=== PATIENT | male | born 1965 | race Caucasian/White ===

== ENCOUNTER → 2016-07-12 | Outpatient (CLI) | payer OTHER ==
--- NOTE | 2016-07-12 11:36 | MR ---
MRI CERVICAL SPINE: MRI THORACIC SPINE: MRI LUMBAR SPINE: CLINICAL HISTORY: Cervical, thoracic, and lumbar region radiculopathy all per order. Radiculopathy, t horacic spine radiculopathy, headaches with neck and back pain since falling injury March 2015 ca using pain into shoulders hands as well as left arm. Low back pain for a long time per patient. TECHNIQUE: Multiplanar, multisequence imaging of the cervical, thoracic, and lumbar spine are all per formed without IV contrast. COMPARISON: None. FINDINGS: C-SPINE: Sagittal images of the cervical spine show the craniocervical junction to appear within normal limits . The cervical and upper thoracic spinal cord is normal in caliber and signal. Vertebral alignment is straightened on sagittal images. The vertebral body heights are normal. There is mild to moderate disc space narrowing at C5-C6 and moderate disc space narrowing at C6-C7 level. Posterior disc herni ations are present at these levels on sagittal images. Mild to moderate anterior spurring is present at these levels. There is some heterogeneous increased T1 and T2 signal consistent with Modic type II degenerative change at C6-C7 level. Axial images show the C2-C3 level to appear within normal limits limits. Axial images at the C3-C4 level show mild broad based disc protrusion minimally effacing anterior the florence sac and causing mild bilateral neural foraminal narrowing. Axial images at C4-C5 level are felt within normal limits. Axial images at the C5-C6 level show right paracentral disc protrusion effacing anterior thecal sac n early up to ventral surface of spinal cord on axial image 22. There are uncovertebral facet degenerat kay changes causing moderate to advanced bilateral neural foraminal narrowing on axial image 24. Axial images at C6-C7 level show broad-based right paracentral/foraminal disc protrusion effacing ant erior thecal sac nearly up to ventral surface of spinal cord and causing moderate to advanced right g reater than left neural foraminal narrowing. Axial images at C7-T1 level show left-sided uncovertebral facet degenerative changes causing moderate to severe left-sided neural foraminal narrowing. Right-sided neural foramen is patent. Spinal canal is fairly well preserved. IMPRESSION: Straightening of cervical spine with multilevel degenerative changes most prominent at C5 -C6 and C6-C7 level with further details as noted in the body of report. T-SPINE: FINDINGS: A Vitamin E marker is placed posteriorly for counting purposes and is at level of the super ior T11 vertebra. Spinal cord shows normal course, caliber, and signal as it courses the thoracic sp ine. Vertebral body heights and alignment are satisfactory. Disc space heights are maintained. Poste rior disc herniations are seen effacing anterior thecal sac at T6-T7 through T10-T11 level on sagitta l images. Additional posterior disc herniation seen at T12-L1 level effacing anterior thecal sac on s agittal images. Bone marrow signal intensity is preserved. There is minimal multilevel anterior spurr ing. Review of the axial images shows no additional disc herniation at any other level in the upper to mid thoracic spine. Left paracentral disc herniation effacing anterolateral thecal sac at T6-T7 levels confirmed on axial image 2. Right paracentral disc herniation effacing anterolateral thecal sac is confirmed on axial image 16 at T7-T8 level. Axial images at T8-T9 level confirm central disc herniation effacing anterior thecal sac on axial dre ge 13. Axial images at T9-T10 level show broad-based slight right paracentral disc protrusion effacing anter ior thecal sac up to ventral surface of spinal cord on axial image 11. Axial images at T10-T11 level show right paracentral/foraminal disc protrusion effacing anterolateral thecal sac on axial image 9. Mild right-sided neural foraminal narrowing is present. Axial images at the T11-T12 level show broad-based right paracentral disc protrusion effacing anterol ateral thecal sac on axial image 4. Axial images at the T12-L1 level show broad-based right paracentral disc protrusion effacing anterola teral thecal sac and axial image 2. IMPRESSION: Multilevel degenerative changes or disc herniations in the mid to lower thoracic spine as detailed above. L-SPINE: FINDINGS: Sagittal images of the lumbar spine show vertebral body heights and alignment to appear sat isfactory. There is disc desiccation L4-L5 level otherwise the intervertebral discs demonstrate stevo l heights and hydration. Small posterior disc herniation seen L4-L5 level on sagittal images. The con us medullaris is normal in position and signal ending at T12-L1 disc space level. The bone marrow si gnal intensity shows some mild heterogeneous endplate changes anterior superior endplates with mild a nterior spurring. Axial images show mild facet degenerative changes bilaterally at L1-L2 through L3-L4 levels. Spinal c anal is preserved and bilateral neural foramina remain patent. Axial images at L4-L5 level show mild facet degenerative changes bilaterally. There is mild to modera te broad disc bulge seen. There is minimal effacement anterior thecal sac. There is moderate left and mild to moderate right-sided neural foraminal narrowing at this level identified. Axial images at L5-S1 level show mild facet degenerative changes bilaterally otherwise are felt withi n normal limits. IMPRESSION: Some multilevel degenerative changes in the lumbar spine as detailed above with findings most pronounced at L4-L5 level noted.
== END | disposition home or self-care (01) ==
LOC: RADMRIMAIN 09:50
PROVIDERS: ATTEND Physical Medicine & Rehabilitation
DX: M48.02 Spinal stenosis, cervical region (principal); M99.71 Connective tissue and disc stenosis of intervertebral foramina of cervical region; M99.72 Connective tissue and disc stenosis of intervertebral foramina of thoracic region; M51.14 Intervertebral disc disorders with radiculopathy, thoracic region; M51.15 Intervertebral disc disorders with radiculopathy, thoracolumbar region; M50.123 Cervical disc disorder at C6-C7 level with radiculopathy; M47.22 Other spondylosis with radiculopathy, cervical region; M47.26 Other spondylosis with radiculopathy, lumbar region
CPT/HCPCS: 72141; 72146; 72148

== ENCOUNTER 2016-10-01 19:41 | Emergency (ER) | payer OTHER ==
[2016-10-01 19:55] VITALS: RESP 18
--- NOTE | 2016-10-01 20:46 | ED ---
General Adult HPI - General Chief complaint: Psychiatric Symptoms Stated complaint: Mental Health-Shaky/SOB Time Seen by Provider: 10/01/16 20:20 Source: patient, family, RN notes reviewed Mode of arrival: ambulatory Limitations: no limitations - History of Present Illness Initial comments: Patient's a 51-year-old male who presents emergency room today with multiple complaints. He does admit that his had increased anxiety. He does admit that he's had increased shaking. States been following up with both his psychiatrist and family doctor for the symptoms. States he is scheduled to see a neurologist but is 2 months weight. States he feels like he cannot wait for this appointment. He states that the shaking seems to be getting worse. States having anxiety due to it. States that his anxiety does have shortness of breath. States currently not feeling short of breath at this time. She still having shakiness in his hands at this time. He currently denies any other complaints or symptoms. Denies any changes in medications. States been taking all of his prescribed meds. Patient denies any recent fever, chills, chest pain, back pain, abdominal pain, nausea or vomiting, numbness or tingling , dysuria or hematuria, constipation or diarrhea, headaches or visual changes, or any other complaints. - Related Data Home Medications Medication Instructions Recorded Confirmed Baclofen 10 mg PO BID 11/06/15 10/01/16 Cholecalciferol [Vitamin D3] 1,000 unit PO DAILY 11/06/15 10/01/16 Escitalopram [Lexapro] 10 mg PO DAILY 11/06/15 10/01/16 Gabapentin [Neurontin] 150 mg PO BID 11/06/15 10/01/16 Gabapentin [Neurontin] 300 mg PO BID 11/06/15 10/01/16 Omeprazole 20 mg PO DAILY 11/06/15 10/01/16 Sodium Bicarbonate 325 mg PO DAILY 11/06/15 10/01/16 buPROPion HCL [Bupropion HCl Sr] 150 mg PO BID 11/06/15 10/01/16 oxyCODONE HCL 15 mg PO TID 11/06/15 10/01/16 Previous Rx's Medication Instructions Recorded Allopurinol [Zyloprim] 150 mg PO DAILY #1 tab 11/10/15 Bumetanide 0.5 mg PO Q48H #0 11/10/15 Folic Acid 1 mg PO DAILY@1200 #30 tab 11/10/15 Multivitamins, Thera [Multivitamin 1 each PO DAILY@1200 #30 tab 11/10/15 (formulary)] Thiamine [Vitamin B-1] 100 mg PO DAILY #30 tab 11/10/15 cloNIDine HCL [Catapres] 0.1 mg PO TID #90 tab 11/10/15 hydrALAZINE HCL [Apresoline] 50 mg PO TID #90 tab 11/10/15 Allergies Allergy/AdvReac Type Severity Reaction Status Date / Time guaifenesin [From Robitussin] Allergy Anaphylaxis Verified 10/01/16 19:55 mesalamine [From Delzicol] Allergy Rash/Hives Verified 10/01/16 19:56 Review of Systems ROS Statement: Those systems with pertinent positive or pertinent negative responses have been documented in the HPI. ROS Other: All systems not noted in ROS Statement are negative. Past Medical History Past Medical History: GERD/Reflux, Hyperlipidemia, Hypertension Additional Past Medical History / Comment(s): Pt requests global technical writer to contact either his mother, Tanja Hartman or sister Eneida for his PMH stating he feels alittle too confused to participate in obtaining history. Wet Machine Operator contacted mother who directed that sister Eneida be contacted. Wet Machine Operator contacted Eneida and she assisted with PMH. Approximately 2 months ago pt had been having abdominal pain and then bowel rupture with surgery-done at [facility]. He was in a induced coma post op and developed kidney issues and received dialysis for a time. He was in the hospital for about 1 month. Sister states he discharged sometime in August and family has noticed a change in his behavior. She states he has had more childish behavior and has had a few rages which she states is completely not like him. He was living with his girlfriend but the broke up 1 week ago and now he is basically homeless - his sister tries to get him to stay with her as much as possible. Family has notice an increase in weakness and confusion the past 2 days. 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 History of Any Multi-Drug Resistant Organisms: None Reported Past Surgical History: Bowel Resection Additional Past Surgical History / Comment(s): Bowel resection with colostomy Past Anesthesia/Blood Transfusion Reactions: No Reported Reaction Past Psychological History: Anxiety, Depression Additional Psychological History / Comment(s): Per pt's sister, Eneida-pt has not been himself since discharged from [facility] in August 2015-more childish behavior and has had a few rages. He is usually independent with his ADLs and he drives. He uses no assistive device. Pt's sister states pt lived with his girlfriend up until 1 week ago. He is now basically homeless. His sister tries to have him stay with her as much as possible. Smoking Status: Former smoker Past Alcohol Use History: Heavy Additional Past Alcohol Use History / Comment(s): Pt smoked for a few yrs and quit when he was 21 yrs old. He used to drink heavily but has not had any alcohol since his bowel surgery earlier this year. Past Drug Use History: None Reported - Past Family History Mother Family Medical History: No Reported History Additional Family Medical History / Comment(s): Mother is very healthy and is 81 yrs old. Father Family Medical History: Hypertension Additional Family Medical History / Comment(s): Father has severe back problems , DDD. He at age 84 yrs. General Exam - General Exam Comments Initial Comments: General: The patient is awake and alert, in no distress, and does not appear acutely ill. Eye: Pupils are equal, round and reactive to light, extra-ocular movements are intact. No nystagmus. There is normal conjunctiva bilaterally. No signs of icterus. Ears, nose, mouth and throat: There are moist mucous membranes and no oral lesions. Neck: The neck is supple, there is no tenderness or JVD. Cardiovascular: There is a regular rate and rhythm. No murmur, rub or gallop is appreciated. Respiratory: Lungs are clear to auscultation, respirations are non-labored, breath sounds are equal. No wheezes, stridor, rales, or rhonchi. Musculoskeletal: Normal ROM, no tenderness. Strength 5/5. Sensation intact. Pulses equal bilaterally 2+. Neurological: A&O x 3. CN II-XII intact, There are no obvious motor or sensory deficits. Coordination appears grossly intact. Speech is normal. Skin: Skin is warm and dry and no rashes or lesions are noted. Psychiatric: Cooperative. Anxious. Limitations: no limitations Course Vital Signs 04/01/17 04/01/17 19:53 22:20 Temperature 97.9 F 97.3 F L Pulse Rate 82 65 Respiratory 18 18 Rate Blood Pressure 126/85 138/86 O2 Sat by Pulse 99 96 Oximetry EKG Findings - EKG Comments: EKG Findings:: EKG performed at 2121: A 12-lead EKG was performed and interpreted by me as showing the following: Rate is 75, and rhythm is normal sinus. There are normal QRS complexes and normal R-wave progression. ST segments have no elevation or depression, and AK segments appear normal. Medical Decision Making - Medical Decision Making Patient reexamined at this time shows no signs of distress. His labs been reviewed and are unremarkable. Patient's seen by mental health. He has no suicidal thoughts or plans or homicidal thoughts or plans. They recommend that he could follow-up outpatient. Patient is advised follow-up neurologist for his shaking. Advised return to emergency room if any symptoms increase worsen or for any other concerns. - Lab Data Result diagrams: 10/01/16 21:20 10/01/16 21:20 Lab Results 10/01/16 10/01/16 10/01/16 Range/Units 21:20 21:20 21:20 WBC 7.4 (3.8-10.6) k/uL RBC 4.85 (4.30-5.90) m/uL Hgb 13.7 (13.0-17.5) gm/dL Hct 40.8 (39.0-53.0) % MCV 84.1 (80.0-100.0) fL MCH 28.3 (25.0-35.0) pg MCHC 33.6 (31.0-37.0) g/dL RDW 13.9 (11.5-15.5) % Plt Count 369 (150-450) k/uL Neutrophils % 61 % Lymphocytes % 28 % Monocytes % 6 % Eosinophils % 2 % Basophils % 1 % Neutrophils # 4.5 (1.3-7.7) k/uL Lymphocytes # 2.1 (1.0-4.8) k/uL Monocytes # 0.4 (0-1.0) k/uL Eosinophils # 0.2 (0-0.7) k/uL Basophils # 0.1 (0-0.2) k/uL Sodium 141 (137-145) mmol/L Potassium 4.7 (3.5-5.1) mmol/L Chloride 105 (98-107) mmol/L Carbon Dioxide 23 (22-30) mmol/L Anion Gap 13 mmol/L BUN 20 (9-20) mg/dL Creatinine 1.38 H (0.66-1.25) mg/dL Est GFR (MDRD) Af Amer >60 (>60 ml/min/1.73 sqM) Est GFR (MDRD) Non-Af 55 (>60 ml/min/1.73 sqM) Glucose 88 (74-99) mg/dL Calcium 9.9 (8.4-10.2) mg/dL Total Bilirubin 0.5 (0.2-1.3) mg/dL AST 25 (17-59) U/L ALT 36 (21-72) U/L Alkaline Phosphatase 78 (38-126) U/L Troponin I <0.012 (0.000-0.034) ng/mL Total Protein 7.6 (6.3-8.2) g/dL Albumin 4.6 (3.5-5.0) g/dL Urine Opiates Screen (NotDetected) Ur Oxycodone Screen (NotDetected) Urine Methadone Screen (NotDetected) Ur Propoxyphene Screen (NotDetected) Ur Barbiturates Screen (NotDetected) U Tricyclic Antidepress (NotDetected) Ur Phencyclidine Scrn (NotDetected) Ur Amphetamines Screen (NotDetected) U Methamphetamines Scrn (NotDetected) U Benzodiazepines Scrn (NotDetected) Urine Cocaine Screen (NotDetected) U Marijuana (THC) Screen (NotDetected) 10/01/16 Range/Units 22:15 WBC (3.8-10.6) k/uL RBC (4.30-5.90) m/uL Hgb (13.0-17.5) gm/dL Hct (39.0-53.0) % MCV (80.0-100.0) fL MCH (25.0-35.0) pg MCHC (31.0-37.0) g/dL RDW (11.5-15.5) % Plt Count (150-450) k/uL Neutrophils % % Lymphocytes % % Monocytes % % Eosinophils % % Basophils % % Neutrophils # (1.3-7.7) k/uL Lymphocytes # (1.0-4.8) k/uL Monocytes # (0-1.0) k/uL Eosinophils # (0-0.7) k/uL Basophils # (0-0.2) k/uL Sodium (137-145) mmol/L Potassium (3.5-5.1) mmol/L Chloride (98-107) mmol/L Carbon Dioxide (22-30) mmol/L Anion Gap mmol/L BUN (9-20) mg/dL Creatinine (0.66-1.25) mg/dL Est GFR (MDRD) Af Amer (>60 ml/min/1.73 sqM) Est GFR (MDRD) Non-Af (>60 ml/min/1.73 sqM) Glucose (74-99) mg/dL Calcium (8.4-10.2) mg/dL Total Bilirubin (0.2-1.3) mg/dL AST (17-59) U/L ALT (21-72) U/L Alkaline Phosphatase (38-126) U/L Troponin I (0.000-0.034) ng/mL Total Protein (6.3-8.2) g/dL Albumin (3.5-5.0) g/dL Urine Opiates Screen Detected H (NotDetected) Ur Oxycodone Screen Not Detected (NotDetected) Urine Methadone Screen Not Detected (NotDetected) Ur Propoxyphene Screen Not Detected (NotDetected) Ur Barbiturates Screen Not Detected (NotDetected) U Tricyclic Antidepress Not Detected (NotDetected) Ur Phencyclidine Scrn Not Detected (NotDetected) Ur Amphetamines Screen Not Detected (NotDetected) U Methamphetamines Scrn Not Detected (NotDetected) U Benzodiazepines Scrn Detected H (NotDetected) Urine Cocaine Screen Not Detected (NotDetected) U Marijuana (THC) Screen Detected H (NotDetected) Disposition Clinical Impression: Shaking Disposition: HOME SELF-CARE Condition: Good Instructions: Tremors (ED) Additional Instructions: Please follow-up family doctor and discuss MRI and see neurologist as discussed. Please return to emergency room if any symptoms increase or worsen or for any other concerns. Time of Disposition: 23:01
[2016-10-01 21:45] LABS: Basophils # (A) 0.1 k/uL (0-0.2); Basophils % (A) 1 %; CH 28.6; CHCM 34.1; Eosinophils # (A) 0.2 k/uL (0-0.7); Eosinophils % (A) 2 %; HCT 40.8 % (39.0-53.0); HDW 3.33; HGB 13.7 gm/dL (13.0-17.5); Luc # (Auto) 0.22; Luc % (Auto) 3; Lymphocytes # (A) 2.1 k/uL (1.0-4.8); Lymphocytes % (A) 28 %; MCH 28.3 pg (25.0-35.0); MCHC 33.6 g/dL (31.0-37.0); MCV 84.1 fL (80.0-100.0); Mean Platelet Volume 6.5; Monocytes # (A) 0.4 k/uL (0-1.0); Monocytes % (A) 6 %; Neutrophils # (A) 4.5 k/uL (1.3-7.7); Neutrophils % (A) 61 %; RBC 4.85 m/uL (4.30-5.90); RDW 13.9 % (11.5-15.5); WBC 7.4 k/uL (3.8-10.6); WBC (Perox) 7.43
[2016-10-01 21:51] LABS: ALT 36 U/L (21-72); AST 25 U/L (17-59); Alkaline Phosphatase 78 U/L (38-126); Anion Gap 13 mmol/L; Blood Urea Nitrogen 20 mg/dL (9-20); Calcium 9.9 mg/dL (8.4-10.2); Carbon Dioxide 23 mmol/L (22-30); Chloride 105 mmol/L (98-107); Glucose 88 mg/dL (74-99); Non-African American GFR(MDRD) 55 (>60 ml/min/1.73 sqM); Potassium 4.7 mmol/L (3.5-5.1); Sodium 141 mmol/L (137-145); Total Bilirubin 0.5 mg/dL (0.2-1.3); Total Protein 7.6 g/dL (6.3-8.2)
--- NOTE | 2016-10-01 21:57 | XR ---
EXAMINATION TYPE: XR chest 2V DATE OF EXAM: 10/01/2016 9:37 PM COMPARISON: 11/09/2015 HISTORY: Weakness and shortness of breath TECHNIQUE: Frontal and lateral views of the chest are obtained. FINDINGS: There is no focal air space opacity, pleural effusion, or pneumothorax seen. The cardiac silhouette size is within normal limits. The osseous structures are intact. Dual lead right jugular central venous catheter has been removed in the interim. Previously noted pulmonary vascular congest ion has also resolved in the interim. IMPRESSION: No acute cardiopulmonary process. Resolution of the previously seen pulmonary vascular c ongestion and removal of the central venous catheter.
[2016-10-01 22:20] VITALS: BP 138/86; PULSE 65; TEMP 97.3
== END 2016-10-01 23:24 | disposition home or self-care (01) ==
LOC: EC 19:41
DX: R25.9 Unspecified abnormal involuntary movements (principal); I10 Essential (primary) hypertension; K21.9 Gastro-esophageal reflux disease without esophagitis; F32.9 Major depressive disorder, single episode, unspecified; F41.9 Anxiety disorder, unspecified; M54.9 Dorsalgia, unspecified; G62.9 Polyneuropathy, unspecified; G89.29 Other chronic pain; M54.2 Cervicalgia; Z59.0 Homelessness; Z79.899 Other long term (current) drug therapy; Z79.891 Long term (current) use of opiate analgesic; Z88.8 Allergy status to other drugs, medicaments and biological substances; Z87.891 Personal history of nicotine dependence
CPT/HCPCS: 36415; 71020; 80053; 80306; 84484; 85025; 93005; 99285

== ENCOUNTER → 2016-10-26 | Outpatient (CLI) | payer OTHER ==
--- NOTE | 2016-10-26 07:31 | MR ---
EXAMINATION TYPE: MR brain wo con DATE OF EXAM: 10/26/2016 7:16 AM COMPARISON: NONE HISTORY: Tremors TECHNIQUE: Multiplanar, multisequence imaging of the brain and brainstem is performed without IV cont rast. FINDINGS: Diffusion weighted images demonstrate no evidence of a recent infarct or other diffusion abnormality. There is no worrisome extra-axial fluid collection. The ventricular system and cisternal spaces are normal in size and appearance. The brain volume is age appropriate. There are some scattered foci of T2 hyperintensity seen throughout the white matter bilaterally. I see less than 6 small lesions tia uring 3 mm or smaller in size. Lesions are nonspecific in appearance and distribution but most likely on basis of product of chronic small vessel ischemic change in patient of this age. Midline structures demonstrate normal morphology. The craniocervical junction appears within normal limits. Normal vascular flow voids are present. The visualized sinuses are clear and the globes are i ntact. IMPRESSION: Mild nonspecific white matter changes most likely on basis of product of chronic small ve ssel ischemic change in patient of this age. Otherwise unremarkable study.
== END ==
LOC: RADMRIMAIN 06:39
PROVIDERS: ATTEND Psychiatry & Neurology Neurology
DX: R25.1 Tremor, unspecified (principal)
CPT/HCPCS: 70551

== ENCOUNTER 2016-12-07 18:23 | Emergency (ER) | payer OTHER ==
--- NOTE | 2016-12-07 20:40 | ED ---
General Adult HPI - General Chief complaint: Recheck/Abnormal Lab/Rx Stated complaint: tremors Time Seen by Provider: 12/07/16 19:53 Source: patient, family, RN notes reviewed, old records reviewed Mode of arrival: ambulatory Limitations: no limitations - History of Present Illness Initial comments: Chief complaint and history of present illness this is a 59-year-old male here with his mother. The patient has had multiple problems in the past or recently in 2014 he had ruptured diverticulitis. Was in a coma for 1 month in [facility]. After being discharged. Starting having a fine tremor to his hands now he has bilateral hands and right leg tremor. He is being seen by neurologist. Yesterday he saw the neurologist was placed on Sinemet he's only taken 2 pills. He also had lab work done which showed normal TSH and FT4. The patient had been on medications for psychological problems for the past 7 years at least including Prozac . he does see a psychiatrist and a neurologist. Anxiety increases the tremors. - Related Data Home Medications Medication Instructions Recorded Confirmed Baclofen 10 mg PO BID 11/06/15 10/01/16 Cholecalciferol [Vitamin D3] 1,000 unit PO DAILY 11/06/15 10/01/16 Escitalopram [Lexapro] 10 mg PO DAILY 11/06/15 10/01/16 Gabapentin [Neurontin] 150 mg PO BID 11/06/15 10/01/16 Gabapentin [Neurontin] 300 mg PO BID 11/06/15 10/01/16 Omeprazole 20 mg PO DAILY 11/06/15 10/01/16 Sodium Bicarbonate 325 mg PO DAILY 11/06/15 10/01/16 buPROPion HCL [Bupropion HCl Sr] 150 mg PO BID 11/06/15 10/01/16 oxyCODONE HCL 15 mg PO TID 11/06/15 10/01/16 Previous Rx's Medication Instructions Recorded Allopurinol [Zyloprim] 150 mg PO DAILY #1 tab 11/10/15 Bumetanide 0.5 mg PO Q48H #0 11/10/15 Folic Acid 1 mg PO DAILY@1200 #30 tab 11/10/15 Multivitamins, Thera [Multivitamin 1 each PO DAILY@1200 #30 tab 11/10/15 (formulary)] Thiamine [Vitamin B-1] 100 mg PO DAILY #30 tab 11/10/15 cloNIDine HCL [Catapres] 0.1 mg PO TID #90 tab 11/10/15 hydrALAZINE HCL [Apresoline] 50 mg PO TID #90 tab 11/10/15 Allergies Allergy/AdvReac Type Severity Reaction Status Date / Time guaifenesin [From Robitussin] Allergy Anaphylaxis Verified 10/01/16 19:55 mesalamine [From Delzicol] Allergy Rash/Hives Verified 10/01/16 19:56 Review of Systems ROS Statement: Those systems with pertinent positive or pertinent negative responses have been documented in the HPI. review of systems no complaint of headache or chest pain or shortness of breath this time he reports he becomes anxious his hands right leg tremble. He states is been getting worse over the past several months. No new injuries. He has had 2 divorces and was homeless 2 months ago. Her living with his sister. Past medical problems significant for GERD, hyperlipidemia, hypertension, also anxiety and depression. Surgeries include bowel resection for a ruptured diverticulitis 2 years ago. patient used to be a heavy alcohol consumer and former smoker. Family history noncontributory. ALLERGIES to guaifenesin and mesalamine ROS Other: All systems not noted in ROS Statement are negative. Past Medical History Past Medical History: GERD/Reflux, Hyperlipidemia, Hypertension Additional Past Medical History / Comment(s): Pt requests health underwriter to contact either his mother, Tanja Hartman or sister Eneida for his PMH stating he feels alittle too confused to participate in obtaining history. Second Watch Sergeant contacted mother who directed that sister Eneida be contacted. Second Watch Sergeant contacted Eneida and she assisted with PMH. Approximately 2 months ago pt had been having abdominal pain and then bowel rupture with surgery-done at [facility]. He was in a induced coma post op and developed kidney issues and received dialysis for a time. He was in the hospital for about 1 month. Sister states he discharged sometime in August and family has noticed a change in his behavior. She states he has had more childish behavior and has had a few rages which she states is completely not like him. He was living with his girlfriend but the broke up 1 week ago and now he is basically homeless - his sister tries to get him to stay with her as much as possible. Family has notice an increase in weakness and confusion the past 2 days. 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 History of Any Multi-Drug Resistant Organisms: None Reported Past Surgical History: Bowel Resection Additional Past Surgical History / Comment(s): Bowel resection with colostomy Past Anesthesia/Blood Transfusion Reactions: No Reported Reaction Past Psychological History: Anxiety, Depression Additional Psychological History / Comment(s): Per pt's sister, Eneida-pt has not been himself since discharged from [facility] in August 2015-more childish behavior and has had a few rages. He is usually independent with his ADLs and he drives. He uses no assistive device. Pt's sister states pt lived with his girlfriend up until 1 week ago. He is now basically homeless. His sister tries to have him stay with her as much as possible. Smoking Status: Former smoker Past Alcohol Use History: Heavy Additional Past Alcohol Use History / Comment(s): Pt smoked for a few yrs and quit when he was 21 yrs old. He used to drink heavily but has not had any alcohol since his bowel surgery earlier this year. Past Drug Use History: None Reported - Past Family History Mother Family Medical History: No Reported History Additional Family Medical History / Comment(s): Mother is very healthy and is 81 yrs old. Father Family Medical History: Hypertension Additional Family Medical History / Comment(s): Father has severe back problems , DDD. He at age 84 yrs. General Exam - General Exam Comments Initial Comments: General: The patient is awake and alert, is here with his mother who drove him here. Due to his condition she's not allowing him to drive. The patient is anxious he does have tremors which alternately stop and start again. Increased by anxiety. Being treated with Sinemet strongly the past 24 hours. Vital signs shows temperature 98.6 pulse 79 respiratory rate 20 pulse ox 97% room air blood pressure 101/71 Eye: Pupils are equal, round and reactive to light, extra-ocular movements are intact ; there is normal conjunctiva bilaterally. No signs of icterus. Ears, nose, mouth and throat: There are moist mucous membranes . Neck: The neck is supple, there is no tenderness . Cardiovascular: There is a regular rate and rhythm. No murmur, rub or gallop is appreciated. Respiratory: Lungs are clear to auscultation, respirations are non-labored, breath sounds are equal. No wheezes, stridor, rales, or rhonchi. Gastrointestinal: Soft, non-distended, non-tender abdomen without masses or organomegaly noted. There is no rebound or guarding present. No CVA tenderness. Back: There is no tenderness to palpation in the midline. There is no obvious deformity. No rashes noted. Musculoskeletal: patient has tremors to both upper extremities especially his hands and his right leg. They start and stop intermittently. He states if he changes position. the tremors will stop for a short while but he can't will them to stop. He has no control over them. Neurological: patient is able to walk. Tremors as noted above. Skin: Skin is warm and dry and no rashes or lesions are noted. Psychiatric: history of anxiety and depression. does not express feelings of suicide Limitations: no limitations Course Vital Signs 12/07/16 18:47 Temperature 98.6 F Pulse Rate 73 Respiratory 20 Rate Blood Pressure 101/71 O2 Sat by Pulse 97 Oximetry Medical Decision Making - Medical Decision Making vital decision making. The patient's TSH is 1.9F T4 is 1.06. I shared these numbers with the patient and his mother. He'll be following up with their family physician, kidney specialist and neurologist. As well as psychiatrist. Advised to continue with the Sinemet 3 times daily as directed by his neurologist was only started yesterday. Mother will drive patient was told not to drive is on [address] tremors or difficulties. Disposition Clinical Impression: Coarse tremors Disposition: HOME SELF-CARE Condition: Fair Instructions: Tremors (ED) Additional Instructions: Continue with the Sinemet 3 times daily. No driving until you problems have been solved and allowed to drive by your neurologist. Referrals: Justina Gregory MD [Primary Care Provider] - 1-2 days Time of Disposition: 20:45
[2016-12-07 21:04] VITALS: BP 129/83; PULSE 64; RESP 18; TEMP 98.1
== END 2016-12-07 21:04 | disposition home or self-care (01) ==
LOC: EC 18:23
DX: G25.2 Other specified forms of tremor (principal); F41.9 Anxiety disorder, unspecified; K21.9 Gastro-esophageal reflux disease without esophagitis; E78.5 Hyperlipidemia, unspecified; I10 Essential (primary) hypertension; F32.9 Major depressive disorder, single episode, unspecified; Z87.891 Personal history of nicotine dependence; Z79.891 Long term (current) use of opiate analgesic; Z79.899 Other long term (current) drug therapy; Z88.8 Allergy status to other drugs, medicaments and biological substances
CPT/HCPCS: 99284

== ENCOUNTER → 2016-12-07 | Outpatient (CLI) | payer OTHER | END | disposition home or self-care (01) | LOC: LABWHC1 10:37 | PROVIDERS: ATTEND Psychiatry & Neurology Neurology | DX: R25.1 Tremor, unspecified (principal) | CPT/HCPCS: 36415; 84439; 84443 ==

== ENCOUNTER → 2018-07-12 | Outpatient (CLI) | payer SELFPAY ==
[2018-07-12 15:14] LABS: Basophils % (A) 0 %; Eosinophils # (A) 0.2 k/uL (0-0.7); Eosinophils % (A) 2 %; HCT 40.5 % (39.0-53.0); HGB 13.1 gm/dL (13.0-17.5); Lymphocytes # (A) 2.1 k/uL (1.0-4.8); Lymphocytes % (A) 24 %; MCH 27.9 pg (25.0-35.0); MCHC 32.2 g/dL (31.0-37.0); MCV 86.6 fL (80.0-100.0); Monocytes # (A) 0.4 k/uL (0-1.0); Monocytes % (A) 5 %; Neutrophils # (A) 5.8 k/uL (1.3-7.7); Neutrophils % (A) 67 %; Platelet Count 326 k/uL (150-450); RBC 4.68 m/uL (4.30-5.90); RDW 14.7 % (11.5-15.5); WBC 8.6 k/uL (3.8-10.6)
[2018-07-12 18:32] LABS: Albumin 4.2 g/dL (3.80-4.90); Albumin/Globulin Ratio 2.47 (1.20-2.10); Anion Gap 8.4 mmol/L (4.00-12.00); Calcium 9.2 mg/dL (8.7-10.3); Carbon Dioxide 26.6 mmol/L (21.6-31.8); Globulin 1.7 g/dL (1.6-3.3); Potassium 4.1 mmol/L (3.5-5.5); Total Bilirubin 0.5 mg/dL (0.2-1.2); Total Protein 5.9 g/dL (6.2-8.2)
== END | disposition home or self-care (01) ==
LOC: LABWHC1 14:29
PROVIDERS: ATTEND Internal Medicine Nephrology
DX: E87.2 Acidosis (principal); E79.9 Disorder of purine and pyrimidine metabolism, unspecified; N25.81 Secondary hyperparathyroidism of renal origin; N18.2 Chronic kidney disease, stage 2 (mild); E55.9 Vitamin D deficiency, unspecified
CPT/HCPCS: 36415; 80053; 82043; 82306; 82570; 84550; 85025

== ENCOUNTER → 2018-11-12 | Outpatient (CLI) | payer MEDICARE ==
[2018-11-12 17:57] LABS: Basophils # (A) 0.1 k/uL (0-0.2); Basophils % (A) 1 %; Eosinophils # (A) 0.2 k/uL (0-0.7); Eosinophils % (A) 2 %; HCT 39.2 % (39.0-53.0); HGB 13.2 gm/dL (13.0-17.5); Lymphocytes % (A) 25 %; MCH 28.9 pg (25.0-35.0); MCHC 33.5 g/dL (31.0-37.0); MCV 86.3 fL (80.0-100.0); Mean Platelet Volume 6.7; Monocytes # (A) 0.5 k/uL (0-1.0); Monocytes % (A) 6 %; Neutrophils # (A) 5.3 k/uL (1.3-7.7); Neutrophils % (A) 65 %; Platelet Count 260 k/uL (150-450); RBC 4.55 m/uL (4.30-5.90); WBC 8.1 k/uL (3.8-10.6)
[2018-11-12 23:35] LABS: Vitamin D 25 Hydroxy 19.4 ng/mL (30.0-100.0)
[2018-11-13 00:21] LABS: Parathyroid Hormone Intact 109.9 pg/mL (14.0-72.0)
[2018-11-13 01:22] LABS: Albumin 4.2 g/dL (3.80-4.90); Albumin/Globulin Ratio 2.47 (1.60-3.17); Anion Gap 11.4 mmol/L (4.00-12.00); Calcium 9.1 mg/dL (8.7-10.3); Carbon Dioxide 21.6 mmol/L (21.6-31.8); Globulin 1.7 g/dL (1.6-3.3); Phosphorus 3.4 mg/dL (2.4-5.1); Potassium 4.3 mmol/L (3.5-5.5); Total Bilirubin 0.2 mg/dL (0.3-1.2); Total Protein 5.9 g/dL (6.2-8.2); Uric Acid 2.9 mg/dL (3.7-8.7)
== END | disposition home or self-care (01) ==
LOC: LABWHC1 16:39
PROVIDERS: ATTEND Internal Medicine Nephrology
DX: E87.2 Acidosis (principal); E79.9 Disorder of purine and pyrimidine metabolism, unspecified; N25.81 Secondary hyperparathyroidism of renal origin; N18.2 Chronic kidney disease, stage 2 (mild); E55.9 Vitamin D deficiency, unspecified
CPT/HCPCS: 36415; 80053; 82043; 82306; 82570; 83735; 83970; 84100; 84550; 85025

== ENCOUNTER → 2019-12-02 | Outpatient (CLI) | payer MEDICARE ==
[2019-12-02 15:12] LABS: Basophils % (A) 1 %; Eosinophils # (A) 0.2 k/uL (0-0.7); Eosinophils % (A) 2 %; HCT 38.5 % (39.0-53.0); HGB 13.1 gm/dL (13.0-17.5); Lymphocytes % (A) 27 %; MCH 30.8 pg (25.0-35.0); MCV 90.7 fL (80.0-100.0); Mean Platelet Volume 6.8; Monocytes # (A) 0.4 k/uL (0-1.0); Monocytes % (A) 5 %; Neutrophils # (A) 4.6 k/uL (1.3-7.7); Neutrophils % (A) 64 %; Platelet Count 229 k/uL (150-450); RBC 4.24 m/uL (4.30-5.90); RDW 14.2 % (11.5-15.5); WBC 7.3 k/uL (3.8-10.6)
[2019-12-02 18:32] LABS: Urine Creatinine 268.9 mg/dL
[2019-12-02 20:38] LABS: African American GFR (CKD) 88.4 (60.0-200.0); Albumin 4.1 g/dL (3.80-4.90); Albumin/Globulin Ratio 2.16 (1.60-3.17); Anion Gap 5.8 mmol/L (4.00-12.00); BUN/Creat Ratio 12.73 Ratio (12.00-20.00); Calcium 8.9 mg/dL (8.7-10.3); Carbon Dioxide 27.2 mmol/L (21.6-31.8); Globulin 1.9 g/dL (1.6-3.3); Magnesium 2.1 mg/dL (1.5-2.4); Non-African American GFR(CKD) 76.2 (60.0-200.0); Phosphorus 2.6 mg/dL (2.4-5.1); Potassium 4.3 mmol/L (3.5-5.5); Total Bilirubin 0.3 mg/dL (0.3-1.2); Uric Acid 2.7 mg/dL (3.7-8.7)
== END | disposition home or self-care (01) ==
LOC: LABWHC1 13:57
PROVIDERS: ATTEND Internal Medicine Nephrology
DX: E87.2 Acidosis (principal); E79.9 Disorder of purine and pyrimidine metabolism, unspecified; N25.81 Secondary hyperparathyroidism of renal origin; N18.2 Chronic kidney disease, stage 2 (mild); E55.9 Vitamin D deficiency, unspecified
CPT/HCPCS: 36415; 80053; 82043; 82306; 82570; 83735; 83970; 84100; 84550; 85025

== ENCOUNTER 2023-02-27 01:19 | Emergency (ER) | payer MEDICARE ==
[2023-02-27 01:27] VITALS: TEMP 98.1
[2023-02-27] MEDS ORDERED: LORazepam 2 MG/ML INJ IV STA (01:49)
[2023-02-27] MEDS ORDERED: SODIUM CHLORIDE 0.9% 1,000 ML IV STA (01:49)
[2023-02-27] MEDS ORDERED: KETOROLAC 15 MG/ML 1 ML VIAL IVP STA (01:50)
[2023-02-27 02:31] LABS: Basophils % (A) 0 %; Eosinophils % (A) 1 %; HGB 12.6 gm/dL (13.0-17.5); Lymphocytes # (A) 1.8 k/uL (1.0-4.8); Lymphocytes % (A) 28 %; MCV 91.1 fL (80.0-100.0); Monocytes # (A) 0.5 k/uL (0-1.0); Monocytes % (A) 7 %; Neutrophils % (A) 62 %; Platelet Count 319 k/uL (150-450); RBC 4.06 m/uL (4.30-5.90); RDW 15.8 % (11.5-15.5); WBC 6.5 k/uL (3.8-10.6)
[2023-02-27 02:35] LABS: ALT 18 U/L (4-49); AST 25 U/L (17-59); African American GFR (CKD) 65 (>60 ml/min/1.73 sqM); Albumin 4.3 g/dL (3.5-5.0); Alkaline Phosphatase 70 U/L (38-126); Anion Gap 9 mmol/L; Blood Urea Nitrogen 17 mg/dL (9-20); Calcium 9.2 mg/dL (8.4-10.2); Carbon Dioxide 22 mmol/L (22-30); Chloride 103 mmol/L (98-107); Glucose 95 mg/dL (74-99); Lipase 79 U/L (23-300); Non-African American GFR(CKD) 56 (>60 ml/min/1.73 sqM); Potassium 3.4 mmol/L (3.5-5.1); Sodium 134 mmol/L (137-145); Total Bilirubin 0.4 mg/dL (0.2-1.3); Total Protein 7.2 g/dL (6.3-8.2)
[2023-02-27 03:13] VITALS: PULSE 92; RESP 20
[2023-02-27] MEDS ORDERED: hydrALAZINE HCL 20 MG/ML 1 ML VIAL IVP STA (03:17)
[2023-02-27] MEDS ORDERED: hydrOXYzine HCL 50 MG/ML 1 ML VIAL IM STA (03:17)
[2023-02-27 03:32] LABS: Appearance,Urine Clear (Clear); Bilirubin,Urine Negative (Negative); Blood,Urine Negative (Negative); Color,Urine Colorless; Glucose,Urine (UA) Negative (Negative); Ketones,Urine Negative (Negative); Leukocyte Esterase,Urine Negative (Negative); Nitrite,Urine Negative (Negative); Protein,Urine Negative (Negative); Specific Gravity,Urine 1.012 (1.001-1.035); Urobilinogen,Urine <2.0 mg/dL (<2.0)
[2023-02-27] MEDS ORDERED: POTASSIUM CHLORIDE ER 20 MEQ TAB.ER PO STA (03:33)
--- NOTE | 2023-02-27 03:59 | ED ---
Abdominal Pain HPI <Jevon Moscoso Dona - Last Filed: 02/27/23 05:10> - General Source: patient Mode of arrival: ambulatory Limitations: no limitations - History of Present Illness MD Complaint: abdominal pain <Leila Montoya - Last Filed: 02/28/23 04:20> - General Chief Complaint: Abdominal Pain Stated Complaint: flu symptoms Time Seen by Provider: 02/27/23 01:31 - History of Present Illness Initial Comments: Patient is a 57-year-old male who presents to the emergency department for multiple complaints. He states he just feels off. He reports mild gen eralized abdominal pain which started tonight. No nausea or vomiting. No fever or chills. No urinary symptoms. No diarrhea, constipation, blood in stool. Patient states he has been having trouble sleeping and is out of his Lexapro for the past week because he was unable to see his primary care provider. He is also out of amlodipine and presents with high blood pressure. He denies suicidal or homicidal thoughts. Patient is very anxious during evaluation. No chest pain or shortness of breath. No headache. Patient has an appointment with his primary care provider on Monday. (Leila Montoya) - Related Data Home Medications Medication Instructions Recorded Confirmed Baclofen 10 mg PO BID 11/06/15 10/01/16 Cholecalciferol [Vitamin D3 (25 1,000 unit PO DAILY 11/06/15 10/01/16 Mcg = 1000 Iu)] Escitalopram [Lexapro] 10 mg PO DAILY 11/06/15 10/01/16 Gabapentin [Neurontin] 150 mg PO BID 11/06/15 10/01/16 Gabapentin [Neurontin] 300 mg PO BID 11/06/15 10/01/16 Omeprazole 20 mg PO DAILY 11/06/15 10/01/16 Sodium Bicarbonate 325 mg PO DAILY 11/06/15 10/01/16 buPROPion HCL [Bupropion HCl Sr] 150 mg PO BID 11/06/15 10/01/16 oxyCODONE HCL [oxyCODONE HCL (IR)] 15 mg PO TID 11/06/15 10/01/16 Previous Rx's Medication Instructions Recorded Bumetanide [BUMEX] 0.5 mg PO Q48H #0 11/10/15 Folic Acid 1 mg PO DAILY@1200 #30 tab 11/10/15 Multivitamins, Thera [Multivitamin 1 each PO DAILY@1200 #30 tab 11/10/15 (formulary)] Thiamine [Vitamin B-1] 100 mg PO DAILY #30 tab 11/10/15 allopurinoL [Zyloprim] 150 mg PO DAILY #1 tab 11/10/15 cloNIDine HCL [Catapres] 0.1 mg PO TID #90 tab 11/10/15 hydrALAZINE HCL [Apresoline] 50 mg PO TID #90 tab 11/10/15 FLUoxetine HCL [PROzac] 10 mg PO DAILY #7 capsule 02/27/23 amLODIPine [Norvasc] 5 mg PO DAILY #7 tab 02/27/23 Allergies Allergy/AdvReac Type Severity Reaction Status Date / Time guaifenesin [From Robitussin] Allergy Anaphylaxis Verified 02/27/23 01:27 mesalamine [From Delzicol] Allergy Rash/Hives Verified 02/27/23 01:27 Review of Systems ROS Other: All systems not noted in ROS Statement are negative. <Jevon Moscoso - Last Filed: 02/27/23 05:10> ROS Other: All systems not noted in ROS Statement are negative. <Leila Montoya - Last Filed: 02/28/23 04:20> ROS Statement: Those systems with pertinent positive or pertinent negative responses have been documented in the HPI. Past Medical History Past Medical History: GERD/Reflux, Hyperlipidemia, Hypertension Additional Past Medical History / Comment(s): Pt requests music writer to contact either his mother, Tanja Hartman or sister Eneida for his PMH stating he feels alittle too confused to participate in obtaining history. Stucco Applicator contacted mother who directed that sister Eneida be contacted. Stucco Applicator contacted Eneida and she assisted with PMH. Approximately 2 months ago pt had been having abdominal pain and then bowel rupture with surgery-done at [facility]. He was in a induced coma post op and developed kidney issues and received dialysis for a time. He was in the hospital for about 1 month. Sister states he discharged sometime in August and family has noticed a change in his behavior. She states he has had more childish behavior and has had a few rages which she states is completely not like him. He was living with his girlfriend but the broke up 1 week ago and now he is basically homeless- his sister tries to get him to stay with her as much as possible. Family has notice an increase in weakness and confusion the past 2 days. 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 History of Any Multi-Drug Resistant Organisms: None Reported Past Surgical History: Bowel Resection Additional Past Surgical History / Comment(s): Bowel resection with colostomy Past Anesthesia/Blood Transfusion Reactions: No Reported Reaction Past Psychological History: Anxiety, Depression Smoking Status: Never smoker Past Alcohol Use History: Heavy Past Drug Use History: Marijuana - Past Family History Mother Family Medical History: No Reported History Additional Family Medical History / Comment(s): Mother is very healthy and is 81 yrs old. Father Family Medical History: Hypertension Additional Family Medical History / Comment(s): Father has severe back problems, DDD. He at age 84 yrs. <Leila Montoya - Last Filed: 02/28/23 04:20> General Exam Limitations: no limitations General appearance: alert, anxious Head exam: Present: atraumatic, normocephalic, normal inspection Respiratory exam: Present: normal lung sounds bilaterally. Absent: respiratory distress, wheezes, rales, rhonchi, stridor Cardiovascular Exam: Present: regular rate, normal rhythm, normal heart sounds. Absent: systolic murmur, diastolic murmur, rubs, gallop, clicks GI/Abdominal exam: Present: soft, normal bowel sounds, hernia. Absent: distended, tenderness, guarding, rebound, rigid Neurological exam: Present: alert Psychiatric exam: Present: normal affect, normal mood Skin exam: Present: warm, dry, intact, normal color. Absent: rash <Leila Montoya - Last Filed: 02/28/23 04:20> Course Vital Signs 02/27/23 02/27/23 02/27/23 01:25 03:13 04:31 Temperature 98.1 F Pulse Rate 98 92 Respiratory 18 20 Rate Blood Pressure 166/103 175/100 185/97 O2 Sat by Pulse 96 100 Oximetry Medical Decision Making - Lab Data Result diagrams: 02/27/23 02:07 02/27/23 02:07 <Jevon Moscoso - Last Filed: 02/27/23 05:10> - Lab Data Result diagrams: 02/27/23 02:07 02/27/23 02:07 <Nakul Montoyaianna - Last Filed: 02/28/23 04:20> - Medical Decision Making Was pt. sent in by a medical professional or institution (, PA, [employer]NCO[employer] PIPE SUPERVISOR, urgent care, hospital, or fdc...) When possible be specific @ -No Did you speak to anyone other than the patient for history (EMS, parent, family, police, friend...)? What history was obtained from this source @ -No Did you review nursing and triage notes (agree or disagree)? Why? @ -I reviewed and agree with nursing and triage notes Were old charts reviewed (outside hosp., previous admission, EMS record, old EKG, old radiological studies, urgent care reports/EKG's, fdc records)? Report findings @ -No old charts were reviewed Differential Diagnosis (chest pain, altered mental status, abdominal pain women, abdominal pain men, vaginal bleeding, weakness, fever, dyspnea, syncope, headache, dizziness, GI bleed, back pain, seizure, CVA, palpatations, mental health)? @ -Differential Abdominal Pain Men: Appendicitis, cholecystitis, diverticulosis, ischemic bowel, pancreatitis, hepatitis, UTI, gastroenteritis, AAA, incarcerated hernia, bowel obstruction, constipation, inflammatory bowel, hepatitis, peptic ulcer disease, splenic infarction, perforated viscus, testicular torsion, this is not meant to be an all-inclusive list EKG interpreted by me (3pts min.). @ -As above X-rays interpreted by me (1pt min.). @ -None done CT interpreted by me (1pt min.). @ -Rectus diastasis measuring 14 0 centimeters wide with mild anterior bulging mesentery and small bowel loops. Superimposed small right paramedian ventral abdominal wall defect measuring 1.1 cm containing a single nonobstructive small bowel loop. Prior surgery to small bowel in the left abdomen. Possible mild circumferential wall thickening distal sigmoid colon and rectum. Bilateral femoral head avascular necrosis U/S interpreted by me (1pt. min.). @ -None done What testing was considered but not performed or refused? (CT, X-rays, U/S, labs)? Why? @ -None What meds were considered but not given or refused? Why? @ -None Did you discuss the management of the patient with other professionals (professionals i.e. , PA, [employer] PIPE SUPERVISOR, lab, RT, psych nurse, home health care social worker, rail transportation operator, teacher, privacy officer, medical case worker)? Give summary @ -No Was smoking cessation discussed for >3mins.? @ -No Was critical care preformed (if so, how long)? @ -No Were there social determinants of health that impacted care today? How? (Homelessness, low income, unemployed, alcoholism, drug addiction, transportation, low edu. Level, literacy, decrease access to med. care, mcc, rehab)? @ -No Was there de-escalation of care discussed even if they declined (Discuss DNR or withdrawal of care, Hospice)? DNR status @ -No What co-morbidities impacted this encounter? (DM, HTN, Smoking, COPD, CAD, Cancer, CVA, ARF, Chemo, Hep., AIDS, mental health diagnosis, sleep apnea, morbid obesity)? @ -None Was patient admitted / discharged? Hospital course, mention meds given and route, prescriptions, significant lab abnormalities, going to OR and other pertinent info. @ -Patient presenting for abdominal pain, anxiety, refill on medications. The abdomen is soft and nontender. Patient does have ventral hernia.Laboratory studies obtained. There is mild hypokalemia at 3.4. Mild anemia at 12.6, increased from 11.9 last visit. Pain controlled. Potassium replenished. Patient given Ativan for anxiety he continued to feel anxious hydroxyzine was given. His blood pressure remained elevated during his visit, 175/100. No headache, chest pain, shortness of breath. Patient was given IV hydralazine with improvement. CT interpreted by myself and radiology showing no evidence of incarcerated hernia. Patient will be discharged home with amlodipine and Prozac. He will follow up with his primary care provider on Monday as planned. Undiagnosed new problem with uncertain prognosis? @ -[No] ru Therapy requiring intensive monitoring for toxicity (Heparin, Nitro, Insulin, Cardizem)? @ -[No] er any procedures done? @ -[No] ianosis/symptom? @ - Abdominal pain, anxiety, hypertension, encounter for medication refill hypokalemia, Acute, or Chronic, or Acute on Chronic? @ - Acute Uncomplicated (without systemic symptoms) or Complicated (systemic symptoms)? @ -Uncomplicated Side effects of treatment? @ -No Exacerbation, Progression, or Severe Exacerbation? @ -No Poses a threat to life or bodily function? How? (Chest pain, [place], [place], pneumonia, PE, COPD, DKA, ARF, appy, cholecystitis, CVA, Diverticulitis, Homicidal, Suicidal, threat to staff... and all critical care pts) @ -No Dr. Moscoso is my attending (Leila Montoya) - Lab Data Lab Results 02/27/23 02/27/23 02/27/23 Range/Units 02:07 02:07 02:07 WBC 6.5 (3.8-10.6) k/uL RBC 4.06 L (4.30-5.90) m/uL Hgb 12.6 L (13.0-17.5) gm/dL Hct 37.0 L (39.0-53.0) % MCV 91.1 (80.0-100.0) fL MCH 31.0 (25.0-35.0) pg MCHC 34.0 (31.0-37.0) g/dL RDW 15.8 H (11.5-15.5) % Plt Count 319 (150-450) k/uL MPV 7.0 Neutrophils % 62 % Lymphocytes % 28 % Monocytes % 7 % Eosinophils % 1 % Basophils % 0 % Neutrophils # 4.0 (1.3-7.7) k/uL Lymphocytes # 1.8 (1.0-4.8) k/uL Monocytes # 0.5 (0-1.0) k/uL Eosinophils # 0.0 (0-0.7) k/uL Basophils # 0.0 (0-0.2) k/uL Sodium 134 L (137-145) mmol/L Potassium 3.4 L (3.5-5.1) mmol/L Chloride 103 (98-107) mmol/L Carbon Dioxide 22 (22-30) mmol/L Anion Gap 9 mmol/L BUN 17 (9-20) mg/dL Creatinine 1.39 H (0.66-1.25) mg/dL Est GFR (CKD-EPI)AfAm 65 (>60 ml/min/1.73 sqM) Est GFR (CKD-EPI)NonAf 56 (>60 ml/min/1.73 sqM) Glucose 95 (74-99) mg/dL Plasma Lactic Acid Kirill 0.9 (0.7-2.0) mmol/L Calcium 9.2 (8.4-10.2) mg/dL Total Bilirubin 0.4 (0.2-1.3) mg/dL AST 25 (17-59) U/L ALT 18 (4-49) U/L Alkaline Phosphatase 70 (38-126) U/L Total Protein 7.2 (6.3-8.2) g/dL Albumin 4.3 (3.5-5.0) g/dL Lipase 79 (23-300) U/L Urine Color Urine Appearance (Clear) Urine pH (5.0-8.0) Ur Specific [place] (1.001-1.035) Urine Protein (Negative) Urine Glucose (UA) (Negative) Urine Ketones (Negative) Urine Blood (Negative) Urine Nitrite (Negative) Urine Bilirubin (Negative) Urine Urobilinogen (<2.0) mg/dL Ur Leukocyte Esterase (Negative) Influenza Type A (PCR) (Not Detectd) Influenza Type B (PCR) (Not Detectd) RSV (PCR) (Not Detectd) SARS-CoV-2 (PCR) (Not Detectd) 02/27/23 02/27/23 Range/Units 02:49 02:49 WBC (3.8-10.6) k/uL RBC (4.30-5.90) m/uL Hgb (13.0-17.5) gm/dL Hct (39.0-53.0) % MCV (80.0-100.0) fL MCH (25.0-35.0) pg MCHC (31.0-37.0) g/dL RDW (11.5-15.5) % Plt Count (150-450) k/uL MPV Neutrophils % % Lymphocytes % % Monocytes % % Eosinophils % % Basophils % % Neutrophils # (1.3-7.7) k/uL Lymphocytes # (1.0-4.8) k/uL Monocytes # (0-1.0) k/uL Eosinophils # (0-0.7) k/uL Basophils # (0-0.2) k/uL Sodium (137-145) mmol/L Potassium (3.5-5.1) mmol/L Chloride (98-107) mmol/L Carbon Dioxide (22-30) mmol/L Anion Gap mmol/L BUN (9-20) mg/dL Creatinine (0.66-1.25) mg/dL Est GFR (CKD-EPI)AfAm (>60 ml/min/1.73 sqM) Est GFR (CKD-EPI)NonAf (>60 ml/min/1.73 sqM) Glucose (74-99) mg/dL Plasma Lactic Acid Kirill (0.7-2.0) mmol/L Calcium (8.4-10.2) mg/dL Total Bilirubin (0.2-1.3) mg/dL AST (17-59) U/L ALT (4-49) U/L Alkaline Phosphatase (38-126) U/L Total Protein (6.3-8.2) g/dL Albumin (3.5-5.0) g/dL Lipase (23-300) U/L Urine Color Colorless Urine Appearance Clear (Clear) Urine pH 7.0 (5.0-8.0) Ur Specific [place] 1.012 (1.001-1.035) Urine Protein Negative (Negative) Urine Glucose (UA) Negative (Negative) Urine Ketones Negative (Negative) Urine Blood Negative (Negative) Urine Nitrite Negative (Negative) Urine Bilirubin Negative (Negative) Urine Urobilinogen <2.0 (<2.0) mg/dL Ur Leukocyte Esterase Negative (Negative) Influenza Type A (PCR) Not Detected (Not Detectd) Influenza Type B (PCR) Not Detected (Not Detectd) RSV (PCR) Not Detected (Not Detectd) SARS-CoV-2 (PCR) Not Detected (Not Detectd) Disposition Is patient prescribed a controlled substance at d/c from ED?: No Time of Disposition: 05:00 <Jevon Moscoso - Last Filed: 02/27/23 05:10> <Leila Montoya - Last Filed: 02/28/23 04:20> Clinical Impression: Abdominal pain, Hypertension, Anxiety, Medication refill, Hypokalemia Disposition: HOME SELF-CARE Condition: Good Instructions (If sedation given, give patient instructions): Abdominal Pain (ED) Prescriptions: amLODIPine [Norvasc] 5 mg PO DAILY #7 tab FLUoxetine HCL [PROzac] 10 mg PO DAILY #7 capsule Referrals: Tai Guzman MD [Primary Care Provider] - 1-2 days
[2023-02-27] MEDS ORDERED: ESCITALOPRAM 10 MG TAB PO STA (04:00)
[2023-02-27] MEDS ORDERED: ACETAMINOPHEN TAB 500 MG TAB PO STA (04:18)
[2023-02-27] MEDS ORDERED: HYDROmorphone 1 MG/ML 1 ML SYRINGE IVP STA (04:28)
[2023-02-27 04:31] VITALS: BP 185/97
--- NOTE | 2023-02-27 04:38 | CT ---
EXAMINATION TYPE: CT abdomen pelvis w con DATE OF EXAM: 02/27/2023 COMPARISON: NONE HISTORY: 57-year-old male Recent bowel obstruction, colostomy. Having abdominal pain. TECHNIQUE: Contiguous axial scanning of the abdomen and pelvis following administration of 100 ml Iso fan 300 IV contrast. Delayed images through the kidneys and coronal/sagittal reconstructions perform ed. CT DLP: 1001.7 mGycm Automated exposure control for dose reduction was used. FINDINGS: Heart normal size without pericardial effusion. Lung bases clear without pleural effusion. No focal liver lesion or biliary ductal dilatation. Portal venous system is patent. Gallbladder, adrenal glands, kidneys, spleen, and pancreas appear within normal limits. No dilated small bowel, free fluid, or free air. There is a rectus diastases measuring 14.0 cm wide with anterior bulging mesentery and bowel loops. There is also a tight, 1.1 cm wide right paramedian ventral mid abdominal wall defect containing a no nobstructed small bowel loop, refer to axial image 45. Previous small bowel surgery left paramedian lower abdomen. Normal appendix. There is moderate to large stool burden. Staple line at the distal sigmoid colon from prior resection and re-anastomosis. Possible mild circumferential wall thickening distal sigmoid and rectum versus incomplete distention, sagittal image 67. No pericolonic inflammatory change. The patient's bladder is urine distended. Mild prostatomegaly at 4.3 cm wide. Pelvic phleboliths. No abnormal fluid collection in the pelvis or pelvic lymphadenopathy. 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 IMPRESSION: 1. RECTUS DIASTASES MEASURING 14.0 CM WIDE WITH MILD ANTERIOR BULGING MESENTERY AND SMALL BOWEL LOOPS . 2. THERE IS A SUPERIMPOSED SMALL RIGHT PARAMEDIAN VENTRAL ABDOMINAL WALL DEFECT MEASURING 1.1 CM WIDE CONTAINING A SINGLE NONOBSTRUCTED SMALL BOWEL LOOP. CORRELATE TO EXCLUDE ANY FOCAL PAIN HERE. 3. PRIOR SURGERY TO SMALL BOWEL IN THE LEFT MID ABDOMEN. ADDITIONAL STAPLE LINE DISTAL SIGMOID COLON FROM PRIOR RESECTION AND REANASTOMOSIS. 4. POSSIBLE MILD CIRCUMFERENTIAL WALL THICKENING DISTAL SIGMOID COLON AND RECTUM WHICH COULD REPRESEN T A NONSPECIFIC MILD COLITIS. CLINICALLY CORRELATE. 5. NOTE BILATERAL FEMORAL HEAD AVN. NO SUBARTICULAR COLLAPSE. CORRELATE FOR RISK FACTORS IN THIS DANY ENT.
== END 2023-02-27 06:09 | disposition home or self-care (01) ==
LOC: EC 01:19
DX: R10.9 Unspecified abdominal pain (principal); I10 Essential (primary) hypertension; F41.9 Anxiety disorder, unspecified; Z76.0 Encounter for issue of repeat prescription; E87.6 Hypokalemia; K21.9 Gastro-esophageal reflux disease without esophagitis; F32.A Depression, unspecified; F12.90 Cannabis use, unspecified, uncomplicated; Z79.899 Other long term (current) drug therapy; Z88.6 Allergy status to analgesic agent; Z88.8 Allergy status to other drugs, medicaments and biological substances; Z20.822 Contact with and (suspected) exposure to COVID-19; Z99.2 Dependence on renal dialysis
CPT/HCPCS: 36415; 80053; 83605; 83690; 85025; 81003; 87636; 74177; 99284; 96374; 96375 ×3; 96361; 96372; J2060; J0360; J3410; J1170; J1885; Q9967